=== PATIENT | male | born 1950 | race Caucasian/White ===

== ENCOUNTER 2019-04-23 18:48 | Emergency (ER) | payer MEDICARE ==
[~2019-04-23] VITALS: Ht 188 cm; Wt 122.5 kg
[~2019-04-23 18:48] MED LIST: ACET325 PO; ALL DAY ALLERGY10 M1; AMOX500; ASPI325; ASPI81EC; ATOR20 PO; BENZ100A PO; BUDE10.22 INH; BUSP15 PO; CEPH500 PO; CHOL10002 PO; CIPR750; CLOBET30L TOP; CLON1; CLON1 PO; CODACE15 PO; CYCL10 PO; DIVA500EC PO; DOXA2 PO; FLUO10 PO; HYDACE10B PO; HYDACE5 PO; HYDACE5325 PO; HYDACE7.5; HYDACE7.5 PO; LORA.5; LORA.5 PO; LOSARTAN-HCTZ1 EACH PO; LOSHYD; MELO7.5 PO; META800 PO; METO25ER; METO25ER PO; METO50 PO; METPHE18ER; METPRE4DP PO; NAPR500 PO; OLAN10 PO; OXYACE5T PO; PARO10 PO; PARO30; PAXIL; PRED20 PO; PROCODE120 PO; Prednisone20 MG PO; RXOXYACE PO; SERT100 PO; SIMV40; SIMV40 PO; TESTOSTERONE ENANTHATE; TESTTP; TRAZ50; TRET.1TC; UNK MUSCLE RELAXER; UNKNOWN BP MED; Zithromax250 MG PO; [UNRECOGNIZED DRUG - OTHER]; [UNRECOGNIZED DRUG - OTHER]; [UNRECOGNIZED DRUG - REMARK]; [UNRECOGNIZED DRUG - REMARK]
[2019-04-23] MEDS ORDERED: LUBRICANT EYE15 ML BOTHEYES (19:08)
[2019-04-23] MEDS ORDERED: Vitamin D2000 UNIT PO (19:09)
[2019-04-23] MEDS ORDERED: GENTEAL TEARS 015 ML BOTHEYES (19:11)
[2019-04-23] MEDS ORDERED: Depakote ER500 MG PO ×2 (19:12)
[2019-04-23] MEDS ORDERED: Cardura8 MG PO (19:13)
[2019-04-23] MEDS ORDERED: SILDENAFIL CIT100 MG PO (19:16)
[2019-04-23] MEDS ORDERED: ANDROGEL75 GM TOP (19:17)
[2019-04-23] MEDS ORDERED: [UNRECOGNIZED DRUG - OTHER] TOP (19:18)
== END 2019-04-23 20:36 | disposition home or self-care (01) ==
LOC: ER 18:48
DX: R42 Dizziness and giddiness (principal); R20.2 Paresthesia of skin; I12.9 Hypertensive chronic kidney disease with stage 1 through stage 4 chronic kidney disease, or unspecified chronic kidney disease; N18.9 Chronic kidney disease, unspecified; J45.909 Unspecified asthma, uncomplicated; F43.10 Post-traumatic stress disorder, unspecified; D64.9 Anemia, unspecified; Z88.8 Allergy status to other drugs, medicaments and biological substances; Z79.899 Other long term (current) drug therapy
CPT/HCPCS: 36415; 84484; 93005; 93010; 99285-25

== ENCOUNTER 2019-09-03 20:08 | Emergency (ER) | payer OTHER ==
[~2019-09-03] VITALS: Ht 188 cm; Wt 122.5 kg
[~2019-09-03 20:08] MED LIST changes: +ANDROGEL75 GM TOP; +Cardura8 MG PO; +Depakote ER500 MG PO; +GENTEAL TEARS 015 ML BOTHEYES; +LUBRICANT EYE15 ML BOTHEYES; +SILDENAFIL CIT100 MG PO; +Vitamin D2000 UNIT PO; +[UNRECOGNIZED DRUG - OTHER] TOP
[2019-09-03 20:45] LABS: BASOPHILS ABSOLUTE AUTO 0.02 K/mm3 (0.00-0.23); BASOPHILS PERCENT AUTO 0 % (0-2); EOSINOPHILS ABSOLUTE AUTO 0.18 K/mm3 (0.00-0.68); EOSINOPHILS PERCENT AUTO 3 % (0-6); Hematocrit 39.5 % (37.0-53.0); Hemoglobin 13.7 g/dL (13.5-17.5); IMMATURE GRAN ABSOLUTE AUTO 0.03 K/mm3 (0.00-0.10); IMMATURE GRAN PERCENT AUTO 1 % (0-1); LYMPHOCYTES ABSOLUTE AUTO 1.77 K/mm3 (0.84-5.20); LYMPHOCYTES PERCENT AUTO 27 % (21-46); MONOCYTES PERCENT AUTO 11 % (4-13); Mean Corpuscular HGB 29.3 pg (26.0-34.0); Mean Corpuscular HGB Conc 34.7 g/dL (31.5-36.5); Mean Corpuscular Volume 84 fL (80-100); Mean Platelet Volume 9.3 fL (9.1-12.4); NEUTROPHILS ABSOLUTE AUTO 3.96 K/mm3 (1.96-9.15); NEUTROPHILS PERCENT AUTO 59 % (41-73); Platelet Count 185 K/mm3 (150-400); RDW Coefficient Variation 12.9 % (11.7-14.2); RDW Standard Deviation 39.5 fL (35.1-46.3); Red Blood Cell Count 4.68 M/mm3 (4.30-5.90); White Blood Cell Count 6.66 K/mm3 (4.00-11.30)
[2019-09-03 21:06] LABS: Alanine Aminotransfer (ALT/SGP 41 U/L (12-78); Albumin, Blood 3.9 g/dL (3.4-5.0); Albumin/Globulin Ratio 1.1 (0.8-1.8); Alk Phos 61 U/L (50-136); Anion Gap 5 mmol/L (6-16); Aspartate Aminotrans (AST/SGOT 40 U/L (12-37); Bilirubin, Total 0.5 mg/dL (0.1-1.0); Blood Urea Nitrogen 20 mg/dL (8-24); Bun/Creatinine Ratio 21.8 (12.0-20.0); CO2, Blood 27 mmol/L (21-32); Calcium, Blood 9.1 mg/dL (8.5-10.1); Chloride, Blood 105 mmol/L (98-108); Creatinine, Blood 0.92 mg/dL (0.60-1.20); Globulin, Blood 3.7 g/dL (2.2-4.0); Glomerular Filtration Rate >60 (60-); Glucose, Blood 155 mg/dL (70-99); Potassium, Blood 3.2 mmol/L (3.5-5.5); Sodium, Blood 137 mmol/L (136-145); Total Protein, Blood 7.6 g/dL (6.4-8.2); Troponin I <0.015 ng/mL (0.000-0.040)
[2019-09-04 00:10] LABS: Source, Urine Clean Catch
[2019-09-04 00:16] LABS: Bilirubin, Urine Neg (Neg); Blood, Urine Neg (Neg); Glucose Qualitative, Urine Neg (Neg); Ketones, Urine Neg (Neg); Leukocyte Esterase, Urine Neg (Neg); Nitrite, Urine Neg (Neg); Protein, Urine Neg (Neg); Specific Gravity, Urine 1.025 (1.003-1.022); Urobilinogen, Urine NORM (Normal)
[2019-09-04 00:20] LABS: Appearance, Urine Clear (Clear); Color, Urine Yellow (P-Yellow)
== END 2019-09-04 01:10 | disposition home or self-care (01) ==
LOC: ER 20:08
PROVIDERS: Physician Assistant
DX: R07.9 Chest pain, unspecified (principal); E87.6 Hypokalemia; R51 Headache; H53.9 Unspecified visual disturbance; I10 Essential (primary) hypertension; J45.909 Unspecified asthma, uncomplicated; J43.9 Emphysema, unspecified; Z88.8 Allergy status to other drugs, medicaments and biological substances; Z79.899 Other long term (current) drug therapy
CPT/HCPCS: 36415; 70450; 71046; 80053; 81003; 84484; 85025; 93005; 93010; 99285-25

== ENCOUNTER 2020-01-07 16:17 | Emergency (ER) | payer SELFPAY ==
[~2020-01-07] VITALS: Ht 188 cm; Wt 129.3 kg
[~2020-01-07 16:17] MED LIST changes: +LOSA50 PO; +TAMS.4ER PO
[2020-01-07] MEDS ORDERED: Klonopin0.5 MG PO (18:18)
== END 2020-01-07 18:53 | disposition home or self-care (01) ==
LOC: ER 16:17
DX: F41.9 Anxiety disorder, unspecified (principal); Z88.8 Allergy status to other drugs, medicaments and biological substances; Z79.899 Other long term (current) drug therapy; I10 Essential (primary) hypertension; F20.9 Schizophrenia, unspecified; J44.9 Chronic obstructive pulmonary disease, unspecified; F03.90 Unspecified dementia, unspecified severity, without behavioral disturbance, psychotic disturbance, mood disturbance, and anxiety; Z87.891 Personal history of nicotine dependence
CPT/HCPCS: 99283

== ENCOUNTER 2020-04-04 18:39 | Emergency (ER) | payer SELFPAY ==
[~2020-04-04] VITALS: Ht 188 cm; Wt 113.4 kg
[~2020-04-04 18:39] MED LIST changes: +Klonopin0.5 MG PO
[2020-04-04 19:03] LABS: Source, Urine Clean Catch
[2020-04-04 19:05] LABS: Bilirubin, Urine Neg (Neg); Blood, Urine Neg (Neg); Glucose Qualitative, Urine Neg (Neg); Ketones, Urine Neg (Neg); Leukocyte Esterase, Urine Neg (Neg); Nitrite, Urine Neg (Neg); Protein, Urine Neg (Neg); Urobilinogen, Urine NORM (Normal)
[2020-04-04] MEDS ORDERED: HYDPAM50 PO (19:05)
[2020-04-04 19:07] LABS: Appearance, Urine Clear (Clear); Color, Urine Yellow (P-Yellow)
[2020-04-04 19:18] LABS: BASOPHILS ABSOLUTE AUTO 0.03 K/mm3 (0.00-0.23); BASOPHILS PERCENT AUTO 1 % (0-2); EOSINOPHILS ABSOLUTE AUTO 0.11 K/mm3 (0.00-0.68); EOSINOPHILS PERCENT AUTO 2 % (0-6); Hematocrit 38.3 % (37.0-53.0); Hemoglobin 12.8 g/dL (13.5-17.5); IMMATURE GRAN ABSOLUTE AUTO 0.03 K/mm3 (0.00-0.10); IMMATURE GRAN PERCENT AUTO 1 % (0-1); LYMPHOCYTES ABSOLUTE AUTO 1.35 K/mm3 (0.84-5.20); LYMPHOCYTES PERCENT AUTO 24 % (21-46); MONOCYTES ABSOLUTE AUTO 0.47 K/mm3 (0.16-1.47); MONOCYTES PERCENT AUTO 8 % (4-13); Mean Corpuscular HGB 29.4 pg (26.0-34.0); Mean Corpuscular HGB Conc 33.4 g/dL (31.5-36.5); Mean Corpuscular Volume 88 fL (80-100); Mean Platelet Volume 9.3 fL (9.1-12.4); NEUTROPHILS ABSOLUTE AUTO 3.73 K/mm3 (1.96-9.15); NEUTROPHILS PERCENT AUTO 65 % (41-73); Platelet Count 181 K/mm3 (150-400); RDW Coefficient Variation 13.1 % (11.7-14.2); RDW Standard Deviation 42.1 fL (35.1-46.3); Red Blood Cell Count 4.35 M/mm3 (4.30-5.90); White Blood Cell Count 5.72 K/mm3 (4.00-11.30)
[2020-04-04 19:41] LABS: Alanine Aminotransfer (ALT/SGP 47 U/L (12-78); Albumin, Blood 3.9 g/dL (3.4-5.0); Albumin/Globulin Ratio 1.1 (0.8-1.8); Alk Phos 54 U/L (50-136); Anion Gap 5 mmol/L (6-16); Aspartate Aminotrans (AST/SGOT 30 U/L (12-37); Bilirubin, Total 0.5 mg/dL (0.1-1.0); Blood Urea Nitrogen 15 mg/dL (8-24); CO2, Blood 29 mmol/L (21-32); Calcium, Blood 9.2 mg/dL (8.5-10.1); Chloride, Blood 103 mmol/L (98-108); Creatinine, Blood 0.88 mg/dL (0.60-1.20); Globulin, Blood 3.5 g/dL (2.2-4.0); Glomerular Filtration Rate >60 (60-); Glucose, Blood 114 mg/dL (70-99); Potassium, Blood 3.9 mmol/L (3.5-5.5); Sodium, Blood 137 mmol/L (136-145); Total Protein, Blood 7.4 g/dL (6.4-8.2); Troponin I <0.015 ng/mL (0.000-0.040)
[2020-04-05] MEDS ORDERED: Klonopin0.5 MG (19:40)
[2020-04-05] MEDS ORDERED: Refresh Plus1 EACH OP (19:40)
[2020-04-05] MEDS ORDERED: FLUVOXAMINE MA100 MG PO (19:41)
[2020-04-05] MEDS ORDERED: CLOT10 MT (19:41)
[2020-04-05] MEDS ORDERED: LOSA50 (19:42)
== END 2020-04-04 21:11 | disposition home or self-care (01) ==
LOC: ER 18:39
PROVIDERS: Emergency Medicine
DX: F41.9 Anxiety disorder, unspecified (principal); I10 Essential (primary) hypertension; F25.9 Schizoaffective disorder, unspecified; F03.90 Unspecified dementia, unspecified severity, without behavioral disturbance, psychotic disturbance, mood disturbance, and anxiety; J44.9 Chronic obstructive pulmonary disease, unspecified; Z87.891 Personal history of nicotine dependence; Z79.899 Other long term (current) drug therapy
CPT/HCPCS: 71046; 80053; 81003; 84484; 85025; 93005; 93010; 96374; 99284-25; J2060

== ENCOUNTER 2020-09-14 15:40 | Emergency (ER) | payer OTHER ==
[~2020-09-14] VITALS: Ht 188 cm; Wt 120.2 kg
[~2020-09-14 15:40] MED LIST changes: +CLOT10 MT; +FLUVOXAMINE MA100 MG PO; +HYDPAM50 PO; +Klonopin0.5 MG; +LOSA50; +Refresh Plus1 EACH OP
[2020-09-14 16:14] LABS: BASOPHILS ABSOLUTE AUTO 0.06 K/mm3 (0.00-0.23); BASOPHILS PERCENT AUTO 1 % (0-2); EOSINOPHILS ABSOLUTE AUTO 0.15 K/mm3 (0.00-0.68); EOSINOPHILS PERCENT AUTO 2 % (0-6); Hematocrit 48.3 % (37.0-53.0); Hemoglobin 15.6 g/dL (13.5-17.5); IMMATURE GRAN ABSOLUTE AUTO 0.06 K/mm3 (0.00-0.10); IMMATURE GRAN PERCENT AUTO 1 % (0-1); LYMPHOCYTES ABSOLUTE AUTO 1.44 K/mm3 (0.84-5.20); LYMPHOCYTES PERCENT AUTO 19 % (21-46); MONOCYTES PERCENT AUTO 10 % (4-13); Mean Corpuscular HGB 27.8 pg (26.0-34.0); Mean Corpuscular HGB Conc 32.3 g/dL (31.5-36.5); Mean Corpuscular Volume 86 fL (80-100); Mean Platelet Volume 9.7 fL (9.1-12.4); NEUTROPHILS ABSOLUTE AUTO 5.21 K/mm3 (1.96-9.15); NEUTROPHILS PERCENT AUTO 67 % (41-73); Platelet Count 203 K/mm3 (150-400); RDW Coefficient Variation 14.3 % (11.7-14.2); RDW Standard Deviation 45.3 fL (35.1-46.3); Red Blood Cell Count 5.62 M/mm3 (4.30-5.90); White Blood Cell Count 7.72 K/mm3 (4.00-11.30)
[2020-09-14 16:37] LABS: Alanine Aminotransfer (ALT/SGP 44 U/L (12-78); Albumin, Blood 3.8 g/dL (3.4-5.0); Alk Phos 57 U/L (50-136); Anion Gap 4 mmol/L (6-16); Aspartate Aminotrans (AST/SGOT 32 U/L (12-37); Bilirubin, Total 0.3 mg/dL (0.1-1.0); Blood Urea Nitrogen 18 mg/dL (8-24); Bun/Creatinine Ratio 22.5 (12.0-20.0); CO2, Blood 30 mmol/L (21-32); Calcium, Blood 8.4 mg/dL (8.5-10.1); Chloride, Blood 104 mmol/L (98-108); Globulin, Blood 3.8 g/dL (2.2-4.0); Glomerular Filtration Rate >60 (60-); Glucose, Blood 134 mg/dL (70-99); Potassium, Blood 4.1 mmol/L (3.5-5.5); Sodium, Blood 138 mmol/L (136-145); Total Protein, Blood 7.6 g/dL (6.4-8.2); Troponin I <0.015 ng/mL (0.000-0.040)
[2020-09-14] MEDS ORDERED: BENZ100A PO (20:53)
== END 2020-09-14 21:12 | disposition home or self-care (01) ==
LOC: ER 15:40
PROVIDERS: Physician Assistant
DX: J40 Bronchitis, not specified as acute or chronic (principal); R55 Syncope and collapse; E03.9 Hypothyroidism, unspecified; I12.9 Hypertensive chronic kidney disease with stage 1 through stage 4 chronic kidney disease, or unspecified chronic kidney disease; N18.9 Chronic kidney disease, unspecified; Z79.899 Other long term (current) drug therapy
CPT/HCPCS: 36415; 71045; 80053; 84484; 85025; 93005; 93010; 99283-25

== ENCOUNTER 2020-09-19 11:55 | Emergency (ER) | payer OTHER ==
[~2020-09-19] VITALS: Ht 188 cm; Wt 138.3 kg
[2020-09-19 12:55] LABS: BASOPHILS ABSOLUTE AUTO 0.05 K/mm3 (0.00-0.23); BASOPHILS PERCENT AUTO 1 % (0-2); EOSINOPHILS ABSOLUTE AUTO 0.16 K/mm3 (0.00-0.68); EOSINOPHILS PERCENT AUTO 2 % (0-6); Hematocrit 49.7 % (37.0-53.0); Hemoglobin 16.1 g/dL (13.5-17.5); IMMATURE GRAN ABSOLUTE AUTO 0.07 K/mm3 (0.00-0.10); IMMATURE GRAN PERCENT AUTO 1 % (0-1); LYMPHOCYTES ABSOLUTE AUTO 1.32 K/mm3 (0.84-5.20); LYMPHOCYTES PERCENT AUTO 17 % (21-46); MONOCYTES ABSOLUTE AUTO 0.79 K/mm3 (0.16-1.47); MONOCYTES PERCENT AUTO 10 % (4-13); Mean Corpuscular HGB Conc 32.4 g/dL (31.5-36.5); Mean Corpuscular Volume 86 fL (80-100); Mean Platelet Volume 9.5 fL (9.1-12.4); NEUTROPHILS ABSOLUTE AUTO 5.32 K/mm3 (1.96-9.15); NEUTROPHILS PERCENT AUTO 69 % (41-73); Platelet Count 191 K/mm3 (150-400); RDW Coefficient Variation 14.7 % (11.7-14.2); Red Blood Cell Count 5.76 M/mm3 (4.30-5.90); White Blood Cell Count 7.71 K/mm3 (4.00-11.30)
[2020-09-19 13:15] LABS: Alanine Aminotransfer (ALT/SGP 42 U/L (12-78); Albumin, Blood 3.7 g/dL (3.4-5.0); Alk Phos 51 U/L (50-136); Anion Gap 6 mmol/L (6-16); Aspartate Aminotrans (AST/SGOT 26 U/L (12-37); Bilirubin, Total 0.5 mg/dL (0.1-1.0); Blood Urea Nitrogen 20 mg/dL (8-24); CO2, Blood 27 mmol/L (21-32); Calcium, Blood 8.4 mg/dL (8.5-10.1); Chloride, Blood 104 mmol/L (98-108); Globulin, Blood 3.8 g/dL (2.2-4.0); Glomerular Filtration Rate >60 (60-); Glucose, Blood 121 mg/dL (70-99); Potassium, Blood 4.2 mmol/L (3.5-5.5); Sodium, Blood 137 mmol/L (136-145); Total Protein, Blood 7.5 g/dL (6.4-8.2); Troponin I <0.015 ng/mL (0.000-0.040)
[2020-09-19] MEDS ORDERED: SYMBICORT 80-10.2 GM INH (13:17)
[2020-09-19] MEDS ORDERED: BENZ100A PO (13:17)
[2020-09-19] MEDS ORDERED: LOSA50 PO (13:18)
[2020-09-19] MEDS ORDERED: ROPI.25 PO (13:18)
[2020-09-19] MEDS ORDERED: HYDHCL25 PO (13:18)
[2020-09-19] MEDS ORDERED: SERT100 PO (13:18)
[2020-09-19] MEDS ORDERED: TAMS.4ER PO (13:19)
[2020-09-19] MEDS ORDERED: Viagra100 MG PO (13:19)
[2020-09-19] MEDS ORDERED: TESTOSTERONE75 G1 TOP (13:20)
[2020-09-19] MEDS ORDERED: ALBU90OI INH (14:03)
== END 2020-09-19 14:12 | disposition home or self-care (01) ==
LOC: ER 11:55
PROVIDERS: Emergency Medicine
DX: R55 Syncope and collapse (principal); J43.9 Emphysema, unspecified; I12.9 Hypertensive chronic kidney disease with stage 1 through stage 4 chronic kidney disease, or unspecified chronic kidney disease; N18.9 Chronic kidney disease, unspecified; F42.9 Obsessive-compulsive disorder, unspecified; F43.10 Post-traumatic stress disorder, unspecified; Z88.8 Allergy status to other drugs, medicaments and biological substances; Z79.899 Other long term (current) drug therapy; Z87.891 Personal history of nicotine dependence
CPT/HCPCS: 71046; 80053; 84484; 85025; 93005; 93010; 99284-25

== ENCOUNTER 2020-12-07 22:32 | Emergency (ER) | payer OTHER ==
[~2020-12-07] VITALS: Ht 188 cm; Wt 81.7 kg
[~2020-12-07 22:32] MED LIST changes: +ALBU90OI INH; +HYDHCL25 PO; +ROPI.25 PO; +SYMBICORT 80-10.2 GM INH; +TESTOSTERONE75 G1 TOP; +Viagra100 MG PO
[2020-12-07] MEDS ORDERED: Ativan0.5 MG PO (23:19)
== END 2020-12-07 23:42 | disposition home or self-care (01) ==
LOC: ER 22:32
DX: F41.9 Anxiety disorder, unspecified (principal); I10 Essential (primary) hypertension; J43.9 Emphysema, unspecified; N18.9 Chronic kidney disease, unspecified; Z88.8 Allergy status to other drugs, medicaments and biological substances; Z79.899 Other long term (current) drug therapy
CPT/HCPCS: 93005; 93010; 99283-25; A9270

== ENCOUNTER 2021-10-18 15:39 | Emergency (ER) | payer OTHER ==
[~2021-10-18] VITALS: Ht 188 cm; Wt 135.2 kg
[~2021-10-18 15:39] MED LIST changes: +Ativan0.5 MG PO
[2021-10-18 17:02] LABS: BASOPHILS ABSOLUTE AUTO 0.04 K/mm3 (0.00-0.23); BASOPHILS PERCENT AUTO 1 % (0-2); EOSINOPHILS ABSOLUTE AUTO 0.04 K/mm3 (0.00-0.68); EOSINOPHILS PERCENT AUTO 1 % (0-6); Hematocrit 51.4 % (37.0-53.0); Hemoglobin 17.5 g/dL (13.5-17.5); IMMATURE GRAN ABSOLUTE AUTO 0.05 K/mm3 (0.00-0.10); IMMATURE GRAN PERCENT AUTO 1 % (0-1); LYMPHOCYTES ABSOLUTE AUTO 1.08 K/mm3 (0.84-5.20); LYMPHOCYTES PERCENT AUTO 12 % (21-46); MONOCYTES ABSOLUTE AUTO 0.84 K/mm3 (0.16-1.47); MONOCYTES PERCENT AUTO 10 % (4-13); Mean Corpuscular HGB 29.1 pg (26.0-34.0); Mean Corpuscular Volume 85 fL (80-100); Mean Platelet Volume 9.4 fL (9.1-12.4); NEUTROPHILS ABSOLUTE AUTO 6.82 K/mm3 (1.96-9.15); NEUTROPHILS PERCENT AUTO 77 % (41-73); Platelet Count 231 K/mm3 (150-400); RDW Standard Deviation 40.5 fL (35.1-46.3); Red Blood Cell Count 6.02 M/mm3 (4.30-5.90); White Blood Cell Count 8.87 K/mm3 (4.00-11.30)
[2021-10-18 17:24] LABS: Alanine Aminotransfer (ALT/SGP 45 U/L (12-78); Albumin, Blood 4.1 g/dL (3.4-5.0); Alk Phos 53 U/L (50-136); Anion Gap 5 mmol/L (6-16); Aspartate Aminotrans (AST/SGOT 32 U/L (12-37); Bilirubin, Total 0.9 mg/dL (0.1-1.0); Blood Urea Nitrogen 16 mg/dL (8-24); Bun/Creatinine Ratio 18.7 (12.0-20.0); CO2, Blood 27 mmol/L (21-32); Calcium, Blood 8.9 mg/dL (8.5-10.1); Chloride, Blood 103 mmol/L (98-108); Creatinine, Blood 0.85 mg/dL (0.60-1.20); Globulin, Blood 4.3 g/dL (2.2-4.0); Glomerular Filtration Rate >60 (60-); Glucose, Blood 115 mg/dL (70-99); Potassium, Blood 3.9 mmol/L (3.5-5.5); Sodium, Blood 135 mmol/L (136-145); Total Protein, Blood 8.4 g/dL (6.4-8.2)
[2021-10-18 19:17] LABS: Source, Urine Clean Catch
[2021-10-18 19:21] LABS: Appearance, Urine Clear (Clear); Bilirubin, Urine Neg (Neg); Blood, Urine 2+ (Neg); Color, Urine Yellow (P-Yellow); Glucose Qualitative, Urine 1+ (Neg); Ketones, Urine 4+ (Neg); Leukocyte Esterase, Urine 1+ (Neg); Nitrite, Urine Neg (Neg); Protein, Urine 3+ (Neg); Urobilinogen, Urine 2+ (Normal)
[2021-10-18 19:32] LABS: Bacteria Few /hpf; Granular Casts 0-2 /lpf (0); Mucus Mod (0-Heavy); Squamous Epithelial Cells Few /hpf (Few)
[2021-10-18 20:09] LABS: BASOPHILS ABSOLUTE AUTO 0.04 K/mm3 (0.00-0.23); BASOPHILS PERCENT AUTO 0 % (0-2); EOSINOPHILS ABSOLUTE AUTO 0.04 K/mm3 (0.00-0.68); EOSINOPHILS PERCENT AUTO 0 % (0-6); Hematocrit 51.3 % (37.0-53.0); Hemoglobin 17.2 g/dL (13.5-17.5); IMMATURE GRAN ABSOLUTE AUTO 0.04 K/mm3 (0.00-0.10); IMMATURE GRAN PERCENT AUTO 0 % (0-1); LYMPHOCYTES ABSOLUTE AUTO 1.18 K/mm3 (0.84-5.20); LYMPHOCYTES PERCENT AUTO 13 % (21-46); MONOCYTES ABSOLUTE AUTO 0.94 K/mm3 (0.16-1.47); MONOCYTES PERCENT AUTO 10 % (4-13); Mean Corpuscular HGB Conc 33.5 g/dL (31.5-36.5); Mean Corpuscular Volume 86 fL (80-100); Mean Platelet Volume 9.6 fL (9.1-12.4); NEUTROPHILS ABSOLUTE AUTO 6.91 K/mm3 (1.96-9.15); NEUTROPHILS PERCENT AUTO 76 % (41-73); Platelet Count 227 K/mm3 (150-400); RDW Standard Deviation 40.8 fL (35.1-46.3); Red Blood Cell Count 5.94 M/mm3 (4.30-5.90); White Blood Cell Count 9.15 K/mm3 (4.00-11.30)
[2021-10-18 20:28] LABS: Alanine Aminotransfer (ALT/SGP 42 U/L (12-78); Albumin/Globulin Ratio 0.9 (0.8-1.8); Alk Phos 52 U/L (50-136); Anion Gap 6 mmol/L (6-16); Aspartate Aminotrans (AST/SGOT 32 U/L (12-37); Bilirubin, Total 0.8 mg/dL (0.1-1.0); Blood Urea Nitrogen 15 mg/dL (8-24); Bun/Creatinine Ratio 17.1 (12.0-20.0); CO2, Blood 26 mmol/L (21-32); Calcium, Blood 8.8 mg/dL (8.5-10.1); Chloride, Blood 102 mmol/L (98-108); Creatinine, Blood 0.88 mg/dL (0.60-1.20); Globulin, Blood 4.3 g/dL (2.2-4.0); Glomerular Filtration Rate >60 (60-); Glucose, Blood 108 mg/dL (70-99); Magnesium, Blood 2.2 mg/dL (1.6-2.4); Potassium, Blood 3.8 mmol/L (3.5-5.5); Sodium, Blood 134 mmol/L (136-145); Total Protein, Blood 8.3 g/dL (6.4-8.2)
[2021-10-18] MEDS ORDERED: PROM25 PO (20:42)
[2021-10-18] MEDS ORDERED: SULTRIDS PO (20:42)
[2021-10-18] MEDS ORDERED: HYDRA25 PO (20:42)
== END 2021-10-18 22:04 | disposition home or self-care (01) ==
LOC: ER 15:39
PROVIDERS: Physician Assistant
DX: N30.01 Acute cystitis with hematuria (principal); R11.2 Nausea with vomiting, unspecified; I12.9 Hypertensive chronic kidney disease with stage 1 through stage 4 chronic kidney disease, or unspecified chronic kidney disease; N18.9 Chronic kidney disease, unspecified; D63.1 Anemia in chronic kidney disease; J43.9 Emphysema, unspecified; Z79.899 Other long term (current) drug therapy
CPT/HCPCS: 36415; 71045; 80053; 81001; 83690; 83735; 83880; 84484; 85025; 87086; 93005; 93010; 96374; 96375; 99284-25; A9270; J2405; J2765; J7120

== ENCOUNTER 2022-09-22 15:11 | Emergency (ER) | payer OTHER ==
[~2022-09-22] VITALS: Ht 188 cm; Wt 97.5 kg
[~2022-09-22 15:11] MED LIST changes: +HYDRA25 PO; +PROM25 PO; +SULTRIDS PO
[2022-09-22 17:48] LABS: BASOPHILS ABSOLUTE AUTO 0.04 K/mm3 (0.00-0.23); BASOPHILS PERCENT AUTO 1 % (0-2); EOSINOPHILS ABSOLUTE AUTO 0.12 K/mm3 (0.00-0.68); EOSINOPHILS PERCENT AUTO 2 % (0-6); Hematocrit 40.5 % (37.0-53.0); Hemoglobin 13.5 g/dL (13.5-17.5); IMMATURE GRAN ABSOLUTE AUTO 0.04 K/mm3 (0.00-0.10); IMMATURE GRAN PERCENT AUTO 1 % (0-1); LYMPHOCYTES ABSOLUTE AUTO 1.34 K/mm3 (0.84-5.20); LYMPHOCYTES PERCENT AUTO 20 % (21-46); MONOCYTES ABSOLUTE AUTO 0.54 K/mm3 (0.16-1.47); MONOCYTES PERCENT AUTO 8 % (4-13); Mean Corpuscular HGB 28.7 pg (26.0-34.0); Mean Corpuscular HGB Conc 33.3 g/dL (31.5-36.5); Mean Corpuscular Volume 86 fL (80-100); Mean Platelet Volume 9.6 fL (9.1-12.4); NEUTROPHILS ABSOLUTE AUTO 4.77 K/mm3 (1.96-9.15); NEUTROPHILS PERCENT AUTO 70 % (41-73); Platelet Count 210 K/mm3 (150-400); RDW Standard Deviation 40.8 fL (35.1-46.3); Red Blood Cell Count 4.71 M/mm3 (4.30-5.90); White Blood Cell Count 6.85 K/mm3 (4.00-11.30)
[2022-09-22 17:59] LABS: Albumin, Blood 3.8 g/dL (3.4-5.0); Albumin/Globulin Ratio 0.9 (0.8-1.8); Bilirubin, Total 0.4 mg/dL (0.1-1.0); Bun/Creatinine Ratio 25.3 (12.0-20.0); Creatinine, Blood 0.71 mg/dL (0.60-1.20); Globulin, Blood 4.1 g/dL (2.2-4.0); Potassium, Blood 4.1 mmol/L (3.5-5.5); Total Protein, Blood 7.9 g/dL (6.4-8.2)
[2022-09-22 18:43] LABS: Magnesium, Blood 1.9 mg/dL (1.6-2.4)
[2022-09-22 18:45] LABS: Thyroid Stimulating Hormone 3.32 uIU/mL (0.360-4.800)
[2022-09-22 19:37] LABS: Base Excess Venous 5.7 mmol/L; Bicarbonate Venous 28.4 mmol/L (24.0-30.0); PCO2 Venous 50.2 mmHg (38-42); pH Blood Venous 7.39 (7.34-7.37)
[2022-09-22 19:45] LABS: Influenza A, PCR NEGATIVE (NEGATIVE); Influenza B, PCR NEGATIVE (NEGATIVE); Resp Syncytial Virus, PCR NEGATIVE (NEGATIVE); SARS-Cov-2 (COVID-19) PCR, MMC NEGATIVE (NEGATIVE)
[2022-09-22] MEDS ORDERED: ALBU90OI INH (21:17)
[2022-09-22] MEDS ORDERED: PRED20 PO (21:17)
== END 2022-09-22 21:56 | disposition home or self-care (01) ==
LOC: ER 15:11
PROVIDERS: Student in an Organized Health Care Education/Training Program
DX: R42 Dizziness and giddiness (principal); R06.02 Shortness of breath; I12.9 Hypertensive chronic kidney disease with stage 1 through stage 4 chronic kidney disease, or unspecified chronic kidney disease; N18.9 Chronic kidney disease, unspecified; J43.9 Emphysema, unspecified; Z20.822 Contact with and (suspected) exposure to COVID-19; Z88.8 Allergy status to other drugs, medicaments and biological substances; Z79.899 Other long term (current) drug therapy
CPT/HCPCS: 0241U; 36415; 71045; 80053; 82803; 83735; 83880; 84443; 84484; 85025; 93005; 93010; 94640; 94664

== ENCOUNTER 2022-10-20 15:18 | Emergency (ER) | payer OTHER ==
[~2022-10-20] VITALS: Ht 188 cm; Wt 124.7 kg
[2022-10-20 17:14] LABS: Base Excess Venous 6.3 mmol/L; Bicarbonate Venous 28.2 mmol/L (24.0-30.0); PCO2 Venous 59.2 mmHg (38-42); pH Blood Venous 7.34 (7.34-7.37)
[2022-10-20 17:22] LABS: BASOPHILS ABSOLUTE AUTO 0.04 K/mm3 (0.00-0.23); BASOPHILS PERCENT AUTO 1 % (0-2); EOSINOPHILS ABSOLUTE AUTO 0.07 K/mm3 (0.00-0.68); EOSINOPHILS PERCENT AUTO 1 % (0-6); Hematocrit 39.5 % (37.0-53.0); Hemoglobin 13.2 g/dL (13.5-17.5); IMMATURE GRAN ABSOLUTE AUTO 0.05 K/mm3 (0.00-0.10); IMMATURE GRAN PERCENT AUTO 1 % (0-1); LYMPHOCYTES ABSOLUTE AUTO 1.34 K/mm3 (0.84-5.20); LYMPHOCYTES PERCENT AUTO 17 % (21-46); MONOCYTES ABSOLUTE AUTO 0.63 K/mm3 (0.16-1.47); MONOCYTES PERCENT AUTO 8 % (4-13); Mean Corpuscular HGB 29.1 pg (26.0-34.0); Mean Corpuscular HGB Conc 33.4 g/dL (31.5-36.5); Mean Corpuscular Volume 87 fL (80-100); Mean Platelet Volume 9.5 fL (9.1-12.4); NEUTROPHILS ABSOLUTE AUTO 5.68 K/mm3 (1.96-9.15); NEUTROPHILS PERCENT AUTO 73 % (41-73); Platelet Count 219 K/mm3 (150-400); RDW Coefficient Variation 13.2 % (11.7-14.2); RDW Standard Deviation 41.7 fL (35.1-46.3); Red Blood Cell Count 4.54 M/mm3 (4.30-5.90); White Blood Cell Count 7.81 K/mm3 (4.00-11.30)
[2022-10-20 17:32] LABS: Albumin, Blood 3.7 g/dL (3.4-5.0); Albumin/Globulin Ratio 0.9 (0.8-1.8); Bilirubin, Total 0.3 mg/dL (0.1-1.0); Bun/Creatinine Ratio 27.1 (12.0-20.0); Calcium, Blood 8.7 mg/dL (8.5-10.1); Creatinine, Blood 0.7 mg/dL (0.60-1.20); Globulin, Blood 4.2 g/dL (2.2-4.0); Potassium, Blood 4.1 mmol/L (3.5-5.5); Total Protein, Blood 7.9 g/dL (6.4-8.2)
[2022-10-20] MEDS ORDERED: Vistaril50 MG PO (19:50)
== END 2022-10-20 20:05 | disposition home or self-care (01) ==
LOC: ER 15:18
PROVIDERS: Emergency Medicine
DX: F41.9 Anxiety disorder, unspecified (principal); F43.10 Post-traumatic stress disorder, unspecified; F51.5 Nightmare disorder; R07.9 Chest pain, unspecified; R10.9 Unspecified abdominal pain; I12.9 Hypertensive chronic kidney disease with stage 1 through stage 4 chronic kidney disease, or unspecified chronic kidney disease; N18.9 Chronic kidney disease, unspecified; X58.XXXA Exposure to other specified factors, initial encounter; Z88.8 Allergy status to other drugs, medicaments and biological substances; Z79.899 Other long term (current) drug therapy; Z79.52 Long term (current) use of systemic steroids
CPT/HCPCS: 36415; 71045; 80053; 82803; 83880; 84484; 85025; 93005; 93010; A9270; J2060

== ENCOUNTER 2023-01-20 22:06 | Emergency (ER) | payer OTHER ==
[~2023-01-20] VITALS: Ht 188 cm; Wt 113.4 kg
[~2023-01-20 22:06] MED LIST changes: +ASCO500 PO; +FINA5 PO; +HYDCHL25 PO; +HYDPAM50; +MAGNESIUM OXID400 M2 PO; +METF500 PO; +ORAZINC220 MG PO; +QUET25 PO; +STIOLTO RESPIMAT4 G1 INH; +Vistaril50 MG PO
[2023-01-20] MEDS ORDERED: TRAZ50 PO ×2 (22:44→22:45)
[2023-01-20] MEDS ORDERED: Seroquel Xr50 MG PO (22:45)
[2023-01-20] MEDS ORDERED: METF500 PO (22:46)
== END 2023-01-21 00:45 | disposition home or self-care (01) ==
LOC: ER 22:06
DX: H43.392 Other vitreous opacities, left eye (principal); I12.9 Hypertensive chronic kidney disease with stage 1 through stage 4 chronic kidney disease, or unspecified chronic kidney disease; N18.9 Chronic kidney disease, unspecified; D63.1 Anemia in chronic kidney disease; J43.9 Emphysema, unspecified; Z88.8 Allergy status to other drugs, medicaments and biological substances; Z79.899 Other long term (current) drug therapy; Z79.84 Long term (current) use of oral hypoglycemic drugs
CPT/HCPCS: 99284

== ENCOUNTER 2023-07-15 13:34 | Emergency (ER) | payer OTHER ==
[~2023-07-15] VITALS: Ht 188 cm; Wt 104.3 kg
[~2023-07-15 13:34] MED LIST changes: +Seroquel Xr50 MG PO; +TRAZ50 PO
[2023-07-15] MEDS ORDERED: PRAV20 PO (15:03)
[2023-07-15 16:17] LABS: Source, Urine Clean Catch
[2023-07-15 16:22] LABS: Appearance, Urine Clear (Clear); Bilirubin, Urine Neg (Neg); Blood, Urine Neg (Neg); Color, Urine Yellow (P-Yellow); Glucose Qualitative, Urine 3+ (Neg); Ketones, Urine Neg (Neg); Leukocyte Esterase, Urine Neg (Neg); Nitrite, Urine Neg (Neg); Protein, Urine 1+ (Neg); Specific Gravity, Urine 1.025 (1.003-1.022); Urobilinogen, Urine NORM (Normal)
[2023-07-15 16:24] LABS: BASOPHILS ABSOLUTE AUTO 0.04 K/mm3 (0.00-0.23); BASOPHILS PERCENT AUTO 1 % (0-2); EOSINOPHILS ABSOLUTE AUTO 0.09 K/mm3 (0.00-0.68); EOSINOPHILS PERCENT AUTO 1 % (0-6); Hematocrit 40.2 % (37.0-53.0); Hemoglobin 13.6 g/dL (13.5-17.5); IMMATURE GRAN ABSOLUTE AUTO 0.04 K/mm3 (0.00-0.10); IMMATURE GRAN PERCENT AUTO 1 % (0-1); LYMPHOCYTES PERCENT AUTO 21 % (21-46); MONOCYTES ABSOLUTE AUTO 0.61 K/mm3 (0.16-1.47); MONOCYTES PERCENT AUTO 9 % (4-13); Mean Corpuscular HGB 29.2 pg (26.0-34.0); Mean Corpuscular HGB Conc 33.8 g/dL (31.5-36.5); Mean Corpuscular Volume 86 fL (80-100); Mean Platelet Volume 9.5 fL (9.1-12.4); NEUTROPHILS ABSOLUTE AUTO 4.91 K/mm3 (1.96-9.15); NEUTROPHILS PERCENT AUTO 68 % (41-73); Platelet Count 200 K/mm3 (150-400); RDW Coefficient Variation 12.3 % (11.7-14.2); RDW Standard Deviation 39.1 fL (35.1-46.3); Red Blood Cell Count 4.66 M/mm3 (4.30-5.90); White Blood Cell Count 7.19 K/mm3 (4.00-11.30)
[2023-07-15 16:48] LABS: Albumin, Blood 3.7 g/dL (3.4-5.0); Albumin/Globulin Ratio 0.9 (0.8-1.8); Bilirubin, Total 0.4 mg/dL (0.1-1.0); Bun/Creatinine Ratio 24.7 (12.0-20.0); Calcium, Blood 8.9 mg/dL (8.5-10.1); Creatinine, Blood 0.69 mg/dL (0.60-1.20); Potassium, Blood 3.7 mmol/L (3.5-5.5); Total Protein, Blood 7.7 g/dL (6.4-8.2)
[2023-07-15 17:14] VITALS: BP 139/82
== END 2023-07-15 17:15 | disposition home or self-care (01) ==
LOC: ER 13:34
PROVIDERS: Emergency Medicine
DX: H54.62 Unqualified visual loss, left eye, normal vision right eye (principal); Z91.199 Patient's noncompliance with other medical treatment and regimen due to unspecified reason; E11.9 Type 2 diabetes mellitus without complications; Z88.8 Allergy status to other drugs, medicaments and biological substances; Z79.899 Other long term (current) drug therapy; Z79.84 Long term (current) use of oral hypoglycemic drugs; I12.9 Hypertensive chronic kidney disease with stage 1 through stage 4 chronic kidney disease, or unspecified chronic kidney disease; F43.10 Post-traumatic stress disorder, unspecified; N18.9 Chronic kidney disease, unspecified; D63.1 Anemia in chronic kidney disease; E11.22 Type 2 diabetes mellitus with diabetic chronic kidney disease
CPT/HCPCS: 80053; 85025; A9270

== ENCOUNTER 2023-07-29 14:58 | Emergency (ER) | payer OTHER ==
[~2023-07-29] VITALS: Ht 188 cm; Wt 104.3 kg
[~2023-07-29 14:58] MED LIST changes: +PRAV20 PO
[2023-07-29 15:14] VITALS: BP 128/93
== END 2023-07-29 19:50 | disposition home or self-care (01) ==
LOC: ER 14:58
DX: H53.8 Other visual disturbances (principal); I12.9 Hypertensive chronic kidney disease with stage 1 through stage 4 chronic kidney disease, or unspecified chronic kidney disease; E11.22 Type 2 diabetes mellitus with diabetic chronic kidney disease; N18.9 Chronic kidney disease, unspecified; J43.9 Emphysema, unspecified; Z79.899 Other long term (current) drug therapy; Z79.84 Long term (current) use of oral hypoglycemic drugs
CPT/HCPCS: 99283

== ENCOUNTER 2025-05-31 00:45 | Inpatient (IN) | payer OTHER, MEDICARE ==
[~2025-05-31] VITALS: Ht 180.3 cm; Wt 111.6 kg
[2025-05-31] VITALS (32 sets, daily range): BP systolic 84–123; BP diastolic 48–78
[~2025-05-31 00:45] MED LIST changes: +ANTIFUNGAL30 GM TOP; +ASPI81CH PO; +Acerola C500 MG PO; +CEFP200 PO; +CLOP75 PO; +D5W-1/2NS 1,000 ML IV SCH; +EUCERIN ADVANC454 GM TOP
[2025-05-31] MEDS ORDERED: Piperacillin/Tazobactam Sod 3.375 GM in NS 100 ML IV ONE (00:55)
[2025-05-31 01:08] LABS: BASOPHILS ABSOLUTE AUTO 0.07 K/mm3 (0.00-0.23); BASOPHILS PERCENT AUTO 0 % (0-2); EOSINOPHILS ABSOLUTE AUTO 0.03 K/mm3 (0.00-0.68); EOSINOPHILS PERCENT AUTO 0 % (0-6); Hematocrit 46.3 % (37.0-53.0); Hemoglobin 14.9 g/dL (13.5-17.5); IMMATURE GRAN ABSOLUTE AUTO 0.21 K/mm3 (0.00-0.10); IMMATURE GRAN PERCENT AUTO 1 % (0-1); LYMPHOCYTES ABSOLUTE AUTO 1.74 K/mm3 (0.84-5.20); LYMPHOCYTES PERCENT AUTO 9 % (21-46); MONOCYTES ABSOLUTE AUTO 1.47 K/mm3 (0.16-1.47); MONOCYTES PERCENT AUTO 8 % (4-13); Mean Corpuscular HGB Conc 32.2 g/dL (31.5-36.5); Mean Corpuscular Volume 90 fL (80-100); NEUTROPHILS ABSOLUTE AUTO 15.34 K/mm3 (1.96-9.15); NEUTROPHILS PERCENT AUTO 81 % (41-73); NRBC ABSOLUTE 0.00 K/mm3 (0.00-0.02); NRBC Auto 0.0 /100 WBC (0.0-0.2); Platelet Count 314 K/mm3 (150-400); RDW Coefficient Variation 14.3 % (11.7-14.2); RDW Standard Deviation 47.1 fL (35.1-46.3)
[2025-05-31 01:27] LABS: Alanine Aminotransfer (ALT/SGP 151.0 U/L (12-78); Albumin, Blood 3.8 g/dL (3.4-5.0); Albumin/Globulin Ratio 0.9 (0.8-1.8); Anion Gap 13.0 mmol/L (3-11); Aspartate Aminotrans (AST/SGOT 69.0 U/L (12-37); Bilirubin, Total 1.0 mg/dL (0.1-1.0); Blood Urea Nitrogen 68.0 mg/dL (8-24); CO2, Blood 25.0 mmol/L (21-32); Calcium, Blood 8.9 mg/dL (8.5-10.1); Chloride, Blood 112.0 mmol/L (98-108); Creatinine, Blood 3.66 mg/dL (0.60-1.20); Globulin, Blood 4.4 g/dL (2.2-4.0); Glucose, Blood 187.0 mg/dL (70-99); Potassium, Blood 4.3 mmol/L (3.5-5.5); Sodium, Blood 146.0 mmol/L (136-145); Total Protein, Blood 8.2 g/dL (6.4-8.2)
[2025-05-31] MEDS ORDERED: Ipratropium/Albuterol SulF 2.5-0.5MG/3 ML Amp INH SCH (02:55)
[2025-05-31 03:58] LABS: BASOPHILS ABSOLUTE AUTO 0.04 K/mm3 (0.00-0.23); BASOPHILS PERCENT AUTO 0 % (0-2); EOSINOPHILS ABSOLUTE AUTO 0.02 K/mm3 (0.00-0.68); EOSINOPHILS PERCENT AUTO 0 % (0-6); Hematocrit 41.6 % (37.0-53.0); Hemoglobin 13.2 g/dL (13.5-17.5); IMMATURE GRAN ABSOLUTE AUTO 0.10 K/mm3 (0.00-0.10); IMMATURE GRAN PERCENT AUTO 1 % (0-1); LYMPHOCYTES ABSOLUTE AUTO 1.42 K/mm3 (0.84-5.20); LYMPHOCYTES PERCENT AUTO 10 % (21-46); MONOCYTES ABSOLUTE AUTO 1.15 K/mm3 (0.16-1.47); MONOCYTES PERCENT AUTO 8 % (4-13); Mean Corpuscular HGB Conc 31.7 g/dL (31.5-36.5); Mean Corpuscular Volume 92 fL (80-100); NEUTROPHILS ABSOLUTE AUTO 12.27 K/mm3 (1.96-9.15); NEUTROPHILS PERCENT AUTO 82 % (41-73); NRBC ABSOLUTE 0.00 K/mm3 (0.00-0.02); NRBC Auto 0.0 /100 WBC (0.0-0.2); Platelet Count 228 K/mm3 (150-400); RDW Coefficient Variation 14.4 % (11.7-14.2); RDW Standard Deviation 48.4 fL (35.1-46.3)
[2025-05-31 04:13] LABS: Magnesium, Blood 2.2 mg/dL (1.6-2.4)
[2025-05-31 04:29] LABS: Alanine Aminotransfer (ALT/SGP 125.0 U/L (12-78); Albumin, Blood 3.2 g/dL (3.4-5.0); Albumin/Globulin Ratio 0.9 (0.8-1.8); Anion Gap 11.0 mmol/L (3-11); Aspartate Aminotrans (AST/SGOT 58.0 U/L (12-37); Bilirubin, Total 0.9 mg/dL (0.1-1.0); Blood Urea Nitrogen 63.0 mg/dL (8-24); CO2, Blood 28.0 mmol/L (21-32); Calcium, Blood 8.4 mg/dL (8.5-10.1); Chloride, Blood 112.0 mmol/L (98-108); Creatinine, Blood 3.27 mg/dL (0.60-1.20); Globulin, Blood 3.7 g/dL (2.2-4.0); Glucose, Blood 172.0 mg/dL (70-99); Potassium, Blood 4.0 mmol/L (3.5-5.5); Sodium, Blood 147.0 mmol/L (136-145); Total Protein, Blood 6.9 g/dL (6.4-8.2)
[2025-05-31 04:34] LABS: Phosphorus, Blood 6.1 mg/dL (2.5-4.9)
[2025-05-31 05:08] LABS: Influenza A, PCR NEGATIVE (NEGATIVE); Influenza B, PCR NEGATIVE (NEGATIVE); Resp Syncytial Virus, PCR NEGATIVE (NEGATIVE); SARS-Cov-2 (COVID-19) PCR, MMC NEGATIVE (NEGATIVE)
[2025-05-31] MEDS ORDERED: Insulin Regular 100 UNIT/ML 10ML Vial SC SCH (06:00)
--- NOTE | 2025-05-31 06:38 | NUR ---
SHIFT SUMMARY PT HAS TOLERATED SHIFT SINCE BEING ADMITTED TO ICU OVERNIGHT. PT ARRIVES DROWSY AND FALLS ASLEEP DURING QUESTIONING. PT IS NON-VERBAL AND IS ONLY ABLE TO ANSWER YES/NO QUESTIONS WITH NOD OR SHAKE OF HEAD. PT APPEARS TO BE RESTING COMFORTABLY IN ROOM AT THIS TIME. WILL CONTINUE TO MONITOR UNTIL REPORT PASSED TO DAY SHIFT TEAM.
[2025-05-31] MEDS ORDERED: Piperacillin/Tazobactam Sod 3.375 GM in NS 100 ML IV SCH (08:00)
[2025-05-31] MEDS ORDERED: Heparin Sodium,Porcine 5,000 UNIT/0.5 ML SDV SC SCH (09:00)
[2025-05-31] MEDS ORDERED: NS 1,000 ML IV SCH (13:40)
[2025-05-31] MEDS ORDERED: MIRALAX17 GM PO (15:31)
[2025-05-31] MEDS ORDERED: Fleet Enema132 ML PR (15:32)
[2025-05-31] MEDS ORDERED: ONDA4ODT MM (15:33)
[2025-05-31] MEDS ORDERED: TRANSDERM-SCOP1 EA10 TD (15:37)
[2025-05-31] MEDS ORDERED: SENN187 PO (15:38)
[2025-05-31 18:56] LABS: Anion Gap 6.0 mmol/L (3-11); Blood Urea Nitrogen 48.0 mg/dL (8-24); CO2, Blood 28.0 mmol/L (21-32); Calcium, Blood 8.3 mg/dL (8.5-10.1); Chloride, Blood 118.0 mmol/L (98-108); Creatinine, Blood 1.5 mg/dL (0.60-1.20); Glucose, Blood 147.0 mg/dL (70-99); Potassium, Blood 3.4 mmol/L (3.5-5.5); Sodium, Blood 149.0 mmol/L (136-145)
--- NOTE | 2025-05-31 18:59 | NUR ---
PALLIATIVE CARE NOTE: ATTEMPTED TO MEET WITH PT. HE WAS SLEEPING. BUTCH FROM [facility] WAS THERE TO CHECK ON PATIENT. HER NUMBER IS [id number]. SHE STATES SHE HAS DEVELOPED A THERAPEUTIC RELATIONSHIP WITH HIM AND BELIEVES SHE CAN ASSIST IN ANY DIFFICULT DECISIONS THAT NEED TO BE MADE. PT IS REPORTED TO HAVE PSYCHIATRIC ILLNESS AND HAS TRUST ISSUES. SHE IS WILLING TO COME IN AND ASSIST WITH DECISION MAKING IF NEED BE. SHE REPORTED PT IS NOT WILLING TO CHANGE CODE STATUS IN THE PAST OR COMPLETE AN ADVANCE DIRECTIVE. HE HAS NO FAMILY. PT IS CURRENTLY REPORTED TO BE CONFUSED. WILL ATTEMPT MEETING WHEN PT ABLE TO PARTICIPATE.
[2025-06-01] VITALS (20 sets, daily range): BP systolic 112–181; BP diastolic 71–107
[2025-06-01] MEDS ORDERED: D5W-1/2NS 1,000 ML IV SCH (00:05)
[2025-06-01 03:44] LABS: BASOPHILS ABSOLUTE AUTO 0.03 K/mm3 (0.00-0.23); BASOPHILS PERCENT AUTO 1 % (0-2); EOSINOPHILS ABSOLUTE AUTO 0.10 K/mm3 (0.00-0.68); EOSINOPHILS PERCENT AUTO 2 % (0-6); Hematocrit 38.2 % (37.0-53.0); Hemoglobin 11.8 g/dL (13.5-17.5); IMMATURE GRAN ABSOLUTE AUTO 0.05 K/mm3 (0.00-0.10); IMMATURE GRAN PERCENT AUTO 1 % (0-1); LYMPHOCYTES ABSOLUTE AUTO 1.18 K/mm3 (0.84-5.20); LYMPHOCYTES PERCENT AUTO 20 % (21-46); MONOCYTES ABSOLUTE AUTO 0.48 K/mm3 (0.16-1.47); MONOCYTES PERCENT AUTO 8 % (4-13); Mean Corpuscular HGB Conc 30.9 g/dL (31.5-36.5); Mean Corpuscular Volume 93 fL (80-100); NEUTROPHILS ABSOLUTE AUTO 3.96 K/mm3 (1.96-9.15); NEUTROPHILS PERCENT AUTO 68 % (41-73); NRBC ABSOLUTE 0.00 K/mm3 (0.00-0.02); NRBC Auto 0.0 /100 WBC (0.0-0.2); Platelet Count 174 K/mm3 (150-400); RDW Coefficient Variation 14.4 % (11.7-14.2); RDW Standard Deviation 49.1 fL (35.1-46.3)
[2025-06-01 04:12] LABS: Magnesium, Blood 2.3 mg/dL (1.6-2.4)
[2025-06-01 04:17] LABS: Anion Gap 6.0 mmol/L (3-11); Blood Urea Nitrogen 42.0 mg/dL (8-24); CO2, Blood 29.0 mmol/L (21-32); Calcium, Blood 7.9 mg/dL (8.5-10.1); Chloride, Blood 120.0 mmol/L (98-108); Creatinine, Blood 1.18 mg/dL (0.60-1.20); Glucose, Blood 162.0 mg/dL (70-99); Potassium, Blood 3.8 mmol/L (3.5-5.5); Sodium, Blood 151.0 mmol/L (136-145)
[2025-06-01 04:20] LABS: Phosphorus, Blood 2.9 mg/dL (2.5-4.9)
--- NOTE | 2025-06-01 06:12 | NUR ---
SHIFT SUMMARY: PT REMAINS ALERT TO SELF, MAKES APPROPRIATE EYE CONTACT. PT IS NONVERBAL (BASELINE), RESPONDS TO VERBAL STIMULI, CAN NOD/SHAKE HEAD TO YES/NO QUESTIONS, AND FOLLOWS COMMANDS. RIGHT SIDED WEAKNESS NOTED UPON AMBULATION OF EXTREMITIES. AFEBRILE. SBP WNL. HR 70S-80S, SINUS. PT ON RA. SATS>93%. RESPIRATIONS EVEN AND UNLABORED. PT DENIED SOB OR CHEST PAIN THIS SHIFT. ABD MILDLY DISTENDED, SOFT TO PALPATION. BT ACTIVE X4, HYPOACTIVE. MALE PUREWICK IN PLACE, CONNECTED TO LOW CONTINUOUS SUCTION. PT HAS 2 PERIPHERAL IVS IN RAC AND RWRIST. INFUSING IS D5W @ 100ML/HR. THIS RN TO REPORT TO ONCOMING RN.
--- NOTE | 2025-06-01 07:00 | NUR ---
ASSUMPTION OF CARE. PATIENT IS RESTING IN BED BUT WAKES EASILY WITH CONVERSATION. PATIENT STATES YES/NO AND SIMPLE ONE WORD ANSWERS TO QUESTIONS. PATIENT ABLE TO MAEW WELL AND STRONG. PT HAS TWO PIV'S HAND IV SALINE LOCKED AND IV TO RIGHT AC WITH D5 AT 100/HR GOING. NEXT LAB TO CHECK SODIUM IS AT NOON TODAY. DID ORAL CARE THERE WAS LOTS OF DEBRIE ON TONGUE AND ROOF OF MOUTH. REPOSITIONED PT AND SITTING HIGH FOWLERS. LUNGS ARE CLEAR AND ABD IS SOFT WITH GOOD BOWEL TONES. SOME SCATTERED BRUISING TO ARMS AND LEFT FOOT. PUREWICK IN PLACE WITH JEFFERY URINE OUT.
--- NOTE | 2025-06-01 16:57 | NUR ---
TRANSFER TO MEDICAL FLOOR PATIENT IS TRANSFERING TO MEDICAL FLOOR ROOM 304. REPORT HAS BEEN GIVEN. NO ACUTE CHANGES TODAY. HIS SODIUM LEVEL HAS COME DOWN CLOSE TO NORMAL (SEE LABS). PATIENT HAS BEEN ABLE TO WORK WITH PT/OT/SP AND NURSING STAFF TODAY TO BE IN CHAIR AND STAND SIT WITH WALKER AND GAIT BELT. HE SHOWS SOME ATAXIA TO RIGHT LEG ONLY WHEN STANDING, AND TO RIGHT HAND WHEN FINGER POINT FINGER TO NOSE BACK AND FORTH QUICKLY. HE IS OTHERWISE STRONG BILATERALLY BUT DOES LISP TO RIGHT WHEN SITTING UPRIGHT WITHOUT SUPPORT. VICKY HAS GIVEN HIM A DIET DYSPHASIA LEVEL 4. HE REMAINS ON D5W AT 100ML/HR AT THIS TIME. NO ORDER TO DC OF YET. LABS IN THE AM. WILL MOVE PT TO 304 VIA BED.
[2025-06-02] MEDS ORDERED: Piperacillin/Tazobactam Sod 3.375 GM in NS 100 ML IV SCH (01:00)
[2025-06-02 03:43] VITALS: BP 125/72
--- NOTE | 2025-06-02 04:43 | NUR ---
SHIFT SUMMARY A/O TO SELF ONLY. VERY LITTLE VERBAL COMMUNICATION, PT ANSWERS WITH HEAD NODS. APPEARS TO HAVE SLEPT WELL THROUGHOUT THE SHIFT. MEDICATIONS GIVEN PER EMAR. VITAL SIGNS REMAINED STABLE. TELE IN PLACE WITH REPORT OF NSR AT 68. NO REPORTS OF PAIN. REPOSITIONED Q2H AND ATTENDS CHANGED WHEN SOILED. REMOVED MALE PUREWICK PT CONTINUES TO PULL IT OFF. NO ACUTE CHANGES THROUGHOUT THE SHIFT. CALL LIGHT IN REACH, BED IN LOWEST POSITION. WILL REPORT TO ONCOMING RN.
[2025-06-02 06:15] LABS: Hematocrit 36.0 % (37.0-53.0); Hemoglobin 11.5 g/dL (13.5-17.5); Mean Corpuscular HGB Conc 31.9 g/dL (31.5-36.5); Mean Corpuscular Volume 92 fL (80-100); NRBC ABSOLUTE 0.00 K/mm3 (0.00-0.02); NRBC Auto 0.0 /100 WBC (0.0-0.2); Platelet Count 166 K/mm3 (150-400); RDW Coefficient Variation 13.9 % (11.7-14.2); RDW Standard Deviation 46.8 fL (35.1-46.3)
[2025-06-02 07:00] LABS: Alanine Aminotransfer (ALT/SGP 84.0 U/L (12-78); Albumin, Blood 2.8 g/dL (3.4-5.0); Albumin/Globulin Ratio 0.9 (0.8-1.8); Anion Gap 5.0 mmol/L (3-11); Aspartate Aminotrans (AST/SGOT 40.0 U/L (12-37); Bilirubin, Total 0.6 mg/dL (0.1-1.0); Blood Urea Nitrogen 21.0 mg/dL (8-24); CO2, Blood 28.0 mmol/L (21-32); Calcium, Blood 7.9 mg/dL (8.5-10.1); Chloride, Blood 118.0 mmol/L (98-108); Creatinine, Blood 0.88 mg/dL (0.60-1.20); Globulin, Blood 3.2 g/dL (2.2-4.0); Glucose, Blood 137.0 mg/dL (70-99); Potassium, Blood 3.2 mmol/L (3.5-5.5); Sodium, Blood 148.0 mmol/L (136-145); Total Protein, Blood 6.0 g/dL (6.4-8.2)
[2025-06-02] MEDS ORDERED: Insulin Regular 100 UNIT/ML 10ML Vial SC SCH (07:30)
[2025-06-02 07:40] VITALS: BP 158/94
[2025-06-02] MEDS ORDERED: Ondansetron 4 MG SoluTab MM PRN (08:00)
[2025-06-02] MEDS ORDERED: Albuterol HFA200 ACT/6.7 GM INH INH PRN (08:05)
[2025-06-02] MEDS ORDERED: Eucerin Unscented Lotion 240 ml TOP PRN (08:10)
[2025-06-02] MEDS ORDERED: Polyethylene Glycol 3350 17 gm PO SCH (09:00)
[2025-06-02 11:00] LABS: Anion Gap 7.0 mmol/L (3-11); Blood Urea Nitrogen 18.0 mg/dL (8-24); CO2, Blood 26.0 mmol/L (21-32); Calcium, Blood 8.3 mg/dL (8.5-10.1); Chloride, Blood 116.0 mmol/L (98-108); Creatinine, Blood 0.85 mg/dL (0.60-1.20); Glucose, Blood 159.0 mg/dL (70-99); Potassium, Blood 3.5 mmol/L (3.5-5.5); Sodium, Blood 145.0 mmol/L (136-145)
[2025-06-02 11:26] VITALS: BP 136/82
[2025-06-02] MEDS ORDERED: Pantoprazole Sodium 40 MG Injection IV SCH (13:00)
[2025-06-02 15:34] VITALS: BP 126/70
[2025-06-02] MEDS ORDERED: NS 250 ML IV PRN (19:15)
--- NOTE | 2025-06-02 19:37 | NUR ---
SUMMARY PT SEEN BY SALINAS PALACIO AND WAS STARTED ON PUREED LEVEL 4 DIET WITH MOD THICKENED LIQUIDS. PT VERY POOR APPETITE, REFUSING MEALS. WHEN ASKED WHY HE DOESN'T WANT TO EAT PT STATES "I DONT KNOW" WHEN ATTEMPTING TO GIVE PO MEDS THIS AM PT SPIT OUT AND REFUSED TO TAKE MORE. WHEN ASKED WHY HE DID NOT WANT TO TAKE HIS PO MEDS THIS EVENING PT STATES "I DONT CARE" PT SEEN BY PHYSICAL THERAPY AND OCCUPATIONAL THERAPY. PALLIATIVE CARE CONSULTED TODAY FOR CARE PLANNING/READMISSION. PT STOOD AT OOB WITH THERAPY. PT HAS COUGH THAT PT CAN OCCASIONALLY CLEAR ON OWN BUT WILL SET UP SUCTION TO ASSIST IF NEEDED. INCONTINENT OF BOWEL AND BLADDER. ATTENDS CHANGED PRN. REPOSITIONING Q2. UNABLE TO MAKE NEEDS KNOWN. 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 NO TEETH/NO DENTURES AT BEDSIDE.
[2025-06-02 20:00] VITALS: BP 136/81
--- NOTE | 2025-06-02 21:46 | NUR ---
PT REFUSED 2100 ORAL MEDS PT AGREED TO TAKE MEDS. CRUSHED 2100 MEDS IN APPLESAUCE. PT TOOK TWO SMALL BITES AND THEN REFUSED ANY FURTHER MEDS. OFFERED TO GIVE IN PUDDING. PT STILL DECLINES ORAL MEDS. PT WITH NOTABLE DIFFICULTY TAKING FOOD INTO MOUTH AND EXAGERATED SWALLOW.
[2025-06-03 00:40] VITALS: BP 130/78
--- NOTE | 2025-06-03 03:16 | NUR ---
TELE NOTIFICATION PT HAS 13 BEAT RUN OF SVT, NOTIFIED AT 0315. PT SLEEPING.
[2025-06-03 05:05] VITALS: BP 127/79
[2025-06-03 05:51] LABS: Alanine Aminotransfer (ALT/SGP 83.0 U/L (12-78); Albumin, Blood 2.7 g/dL (3.4-5.0); Albumin/Globulin Ratio 0.9 (0.8-1.8); Anion Gap 4.0 mmol/L (3-11); Aspartate Aminotrans (AST/SGOT 40.0 U/L (12-37); Bilirubin, Total 0.6 mg/dL (0.1-1.0); Blood Urea Nitrogen 11.0 mg/dL (8-24); CO2, Blood 29.0 mmol/L (21-32); Calcium, Blood 7.9 mg/dL (8.5-10.1); Chloride, Blood 113.0 mmol/L (98-108); Creatinine, Blood 0.89 mg/dL (0.60-1.20); Globulin, Blood 3.1 g/dL (2.2-4.0); Glucose, Blood 124.0 mg/dL (70-99); Potassium, Blood 3.0 mmol/L (3.5-5.5); Sodium, Blood 143.0 mmol/L (136-145); Total Protein, Blood 5.8 g/dL (6.4-8.2)
[2025-06-03] MEDS ORDERED: Potassium Chloride 60 MEQ IV SCH (06:35)
--- NOTE | 2025-06-03 06:36 | NUR ---
CREAM TESTER SUMMARY WITH HOSPITALIST CONTACT SEE PREVIOUS NURSE NOTES. PT REFUSING ORAL MEDICATIONS. NO ACUTE EVENTS. PT LIMITED VERBAL COMMUNICATION. WORD SEARCHING. PRESSURED SPEECH. PT ATTEMPTED TO TAKE MEDS ORALLY BUT COULD NOT TOLERATE CRUSED AND REFUSED AFTER TWO VERY SMALL BITES. PT HAS VERY POOR INTAKE. PT REMAINS ON CONT FLUIDS. PT PULLED RIGHT FOREARM IV AND WAS UNAWARE HE PULLED IT. REGULAR ROUNDING AND Q2 TURNS COMPLETE. THIS MORNING LABS, PT HAD POTASSIUM OF 3.0. CALL TO HOSPITALIST. SPOKE TO DR RAMOS. NEW ORDER FOR 60MEQ IV. CARE WILL CONTINUE UNTIL REPORT GIVEN TO ONCOMING NURSE.
[2025-06-03] MEDS ORDERED: Potassium Chl 20MEQ/Water100ML 100 ML IV SCH (07:30)
[2025-06-03 07:53] VITALS: BP 142/78
[2025-06-03 11:24] VITALS: BP 129/85
[2025-06-03 15:30] VITALS: BP 140/90
[2025-06-03 19:15] VITALS: BP 139/80
--- NOTE | 2025-06-03 19:48 | NUR ---
SHIFT SUMMARY: PT A&O TO SELF. PLEASANT AND COOPERATIVE WITH CARE. NO ACUTE CHANGES THIS SHIFT. PT TO HAVE PALLIATIVE CONSULT TO DISCUSS SNF VS PALLIATIVE OPTIONS. ST IN ROOM THIS AM TO REASSESS PT. PT REMAINS ASPIRATING ON MEDICATIONS AND FOOD/LIQUIDS. DR. WRIGHT IN ROOM TO DISCUSS OPTION FOR FEEDING TUBE IF THAT NEED OCCURS. PT HAD LARGE BM THIS SHIFT. INFUSING DEXTROSE @60/HR. CALL LIGHT IN REACH. BED IN LOWEST POSITION.
[2025-06-04] VITALS (7 sets, daily range): BP systolic 148–163; BP diastolic 87–96
[2025-06-04 04:52] LABS: BASOPHILS ABSOLUTE AUTO 0.03 K/mm3 (0.00-0.23); BASOPHILS PERCENT AUTO 1 % (0-2); EOSINOPHILS ABSOLUTE AUTO 0.18 K/mm3 (0.00-0.68); EOSINOPHILS PERCENT AUTO 4 % (0-6); Hematocrit 34.8 % (37.0-53.0); Hemoglobin 11.5 g/dL (13.5-17.5); IMMATURE GRAN ABSOLUTE AUTO 0.07 K/mm3 (0.00-0.10); IMMATURE GRAN PERCENT AUTO 2 % (0-1); LYMPHOCYTES ABSOLUTE AUTO 1.30 K/mm3 (0.84-5.20); LYMPHOCYTES PERCENT AUTO 28 % (21-46); MONOCYTES ABSOLUTE AUTO 0.48 K/mm3 (0.16-1.47); MONOCYTES PERCENT AUTO 10 % (4-13); Mean Corpuscular HGB Conc 33.0 g/dL (31.5-36.5); Mean Corpuscular Volume 88 fL (80-100); NEUTROPHILS ABSOLUTE AUTO 2.67 K/mm3 (1.96-9.15); NEUTROPHILS PERCENT AUTO 57 % (41-73); NRBC ABSOLUTE 0.00 K/mm3 (0.00-0.02); NRBC Auto 0.0 /100 WBC (0.0-0.2); Platelet Count 142 K/mm3 (150-400); RDW Coefficient Variation 13.4 % (11.7-14.2); RDW Standard Deviation 43.4 fL (35.1-46.3)
[2025-06-04 05:08] LABS: Anion Gap 5.0 mmol/L (3-11); Blood Urea Nitrogen 7.0 mg/dL (8-24); CO2, Blood 27.0 mmol/L (21-32); Calcium, Blood 8.0 mg/dL (8.5-10.1); Chloride, Blood 110.0 mmol/L (98-108); Creatinine, Blood 0.88 mg/dL (0.60-1.20); Glucose, Blood 124.0 mg/dL (70-99); Magnesium, Blood 1.6 mg/dL (1.6-2.4); Potassium, Blood 3.3 mmol/L (3.5-5.5); Sodium, Blood 139.0 mmol/L (136-145)
--- NOTE | 2025-06-04 07:13 | NUR ---
RAPID TRANSIT OPERATOR SUMMARY PT A/OX TO SELF. WAKEFUL ALL NIGHT LONG. PT PRESENTING WITH INCREASED ALERTNESS AND INCREASED VOCALIZATIONS. PT SPEAKING IN BROKEN SENTENCES VS 1-2 WORD RESPONSES. PT CALLING FOR STAFF. ALSO INCREASED IMPULSIVITY--PT PULLED TELE OFF MULTIPLE TIMES T/O THE NIGHT. PT PULLED RIGHT AC IV. PT HAS MULTIPLE LARGE INCONTINENT BOWEL MOVEMENTS AND LARGE URINE OUTPUT. PT WILL PULL ON BRIEF WHEN SOILED BUT UNABLE TO CALL FOR HELP CONSISTENTLY. PT REQUIRED MULTIPLE FULL BED CHANGES DUE TO HEAVING WETTING AND LARGE BM. PT REMAINS PLEASANT WITH CARE. CONFUSED BUT REDIRECTABLE. ON TELE WITH NO EVENTS. BED ALARM IN PLACE.
[2025-06-04] MEDS ORDERED: HydrALAZINE HCl 20 MG / ML 1ML Vial IV PRN (09:45)
[2025-06-04] MEDS ORDERED: Potassium Chl 20MEQ/Water100ML 100 ML IV STA (09:54)
--- NOTE | 2025-06-04 10:00 | NUR ---
ATTEMPTED TO REACH SISTER GUEVARA BY PHONE ([phone]). NO ANSWER, LEFT VOICEMAIL. BEDSIDE RN REPORTS PT CHOKING WITH MEDICATIONS CRUSHED. HE IS LETHARGIC. WILL CONTINUE TO ATTEMPT CONTACT WITH SISTER.
[2025-06-04] MEDS ORDERED: Ipratropium/Albuterol SulF 2.5-0.5MG/3 ML Amp INH PRN (11:15)
[2025-06-04] MEDS ORDERED: Ondansetron HCl 2 MG / ML 2ML Vial IV PRN (15:35)
--- NOTE | 2025-06-04 18:22 | NUR ---
SHIFT SUMMARY: PT A&O X2. PLEASANT AND COOPERATIVE WITH CARE. PT MADE NPO THIS SHIFT D/T ASPIRATION APPROX 30 MIN AFTER EATING 10% OF BREAKFAST. PT C/O NAUSEA THIS AFTERNOON. IV ZOFRAN ORDERED AND GIVEN PER EMAR. PT HAD 3 LAR[address] BM'S THIS SHIFT. DR. WRIGHT SPOKE WITH PT AGAIN REGARDING FEEDING TUBE PT IS UNABLE TO SWALLOW FOOD OR MEDICATIONS PROPERLY. OT ORDERED FOR COG EVAL; NOT YET COMPLETED OF THIS TIME. TELE IN PLACE RUNNING SINUS RHYTHM WITH A PULSE IN THE 80'S. IV FLUIDS INCREASED TO 75/HR. IV ABX INFUSING W/O COMPLICATIONS. POTASSIUM REPLACED D/T LEVEL OF 3.3. CALL LIGHT IN REACH. BED IN LOWEST POSITION.
[2025-06-05 03:47] VITALS: BP 157/91
--- NOTE | 2025-06-05 04:54 | NUR ---
SHIFT SUMMARY PT ALERT AND ORIENTED TIMES 2 . PT ADMITTED FOR SEPTIC SHOCK.. PT IS ON ROOM AIR. PT HAS DEXTROSE 5% FLUID @75. PT IS COOPERATIVE WITH CARE. PT HAS NO ORAL MEDICATION DUE TO SWALLOW ISSUES. CALL LIGHT WITHIN REACH, RAILS TIMES 2, BED IN LOW POSITION.
[2025-06-05 04:58] LABS: BASOPHILS ABSOLUTE AUTO 0.02 K/mm3 (0.00-0.23); BASOPHILS PERCENT AUTO 0 % (0-2); EOSINOPHILS ABSOLUTE AUTO 0.24 K/mm3 (0.00-0.68); EOSINOPHILS PERCENT AUTO 4 % (0-6); Hematocrit 36.3 % (37.0-53.0); Hemoglobin 11.9 g/dL (13.5-17.5); IMMATURE GRAN ABSOLUTE AUTO 0.08 K/mm3 (0.00-0.10); IMMATURE GRAN PERCENT AUTO 1 % (0-1); LYMPHOCYTES ABSOLUTE AUTO 1.11 K/mm3 (0.84-5.20); LYMPHOCYTES PERCENT AUTO 18 % (21-46); MONOCYTES ABSOLUTE AUTO 0.64 K/mm3 (0.16-1.47); MONOCYTES PERCENT AUTO 10 % (4-13); Mean Corpuscular HGB Conc 32.8 g/dL (31.5-36.5); Mean Corpuscular Volume 89 fL (80-100); NEUTROPHILS ABSOLUTE AUTO 4.06 K/mm3 (1.96-9.15); NEUTROPHILS PERCENT AUTO 66 % (41-73); NRBC ABSOLUTE 0.00 K/mm3 (0.00-0.02); NRBC Auto 0.0 /100 WBC (0.0-0.2); Platelet Count 141 K/mm3 (150-400); RDW Coefficient Variation 13.4 % (11.7-14.2); RDW Standard Deviation 43.6 fL (35.1-46.3)
[2025-06-05 05:31] LABS: Anion Gap 7.0 mmol/L (3-11); Blood Urea Nitrogen 5.0 mg/dL (8-24); CO2, Blood 28.0 mmol/L (21-32); Calcium, Blood 8.2 mg/dL (8.5-10.1); Chloride, Blood 108.0 mmol/L (98-108); Creatinine, Blood 0.92 mg/dL (0.60-1.20); Glucose, Blood 115.0 mg/dL (70-99); Potassium, Blood 3.4 mmol/L (3.5-5.5); Sodium, Blood 140.0 mmol/L (136-145)
[2025-06-05 07:46] VITALS: BP 141/83
[2025-06-05 10:23] VITALS: BP 138/84
--- NOTE | 2025-06-05 11:40 | NUR ---
PT'S MENTATION HAS DECLINED SINCE THIS PC RN VISIT YESTERDAY 06/04/25. CONTINUES TO BE LETHARGIC. TACTILE STIMULI TO GET A MUMBLED RESPONSE. ATTEMPTED TO REACH PT'S SISTER THAT IS LISTED IN DEMOGRAPHICS ([phone]). NO ANSWER. LEFT MESSAGE. UPDATED BEDSIDE RN.
[2025-06-05 15:27] VITALS: BP 133/79
--- NOTE | 2025-06-05 19:50 | NUR ---
SHIFT SUMMARY: PT ORIENTED TO SELF AND TOWN. PT HAS BEEN VERY ANXIOUS AND ATTEMPTING OOB MANY TIMES THIS SHIFT. ATTEMPTED SCHEDULED ZYPREXA AND SEROQUEL. PT REMAINED ANXIOUS AND IS NOW IN MAMTA RESTRAINT. PT INCONTINENT OF BOWEL AND BLADDER. GI PANEL ORDERED BUT NOT YET COLLECTED. PT PULLED IV IN NITA THIS SHIFT. NEW IV PLACED BY JASPREET HOU W/O COMPLICATIONS. DEXTROSE 5% INFUSING @ 75/HR. PLANS FOR PALLIATIVE, CASE MANAGEMENT, AND DOCTOR TO DISCUSS HOSPICE VS FEEDING TUBE PLACEMENT. PT NPO AT THIS TIME FOR ASPIRATION RISK. CALL LIGHT IN REACH. BED IN LOWEST POSITION WITH ALARM ON.
[2025-06-05 21:00] VITALS: BP 165/89
[2025-06-06 00:01] VITALS: BP 126/74
[2025-06-06 05:53] VITALS: BP 130/65
--- NOTE | 2025-06-06 07:10 | NUR ---
SHIFT SUMMARY: PT AOX1, TO SELF ONLY. ABLE TO ANSWER QUESTIONS WITH FEW WORDS, NOT ABLE TO MAKE NEEDS KNOWN, DOES NOT CALL APPROPRIATELY. IMPULSIVE CONSTANTLY, PULLING AT LINES AND ATTEMPTING TO GET OUT OF BED. MAMTA IN PLACE, IM ZYPREXA GIVEN. PT TOLERATING WELL, SMALL BRUISING ON L HIP FROM THE MAMTA, LOOSENED SLIGHTLY. PT INCONT AND HAS HAD SEVERAL BED CHANGES. ATTENDS IN PLACE. PT WITHDRAWN AND VERY SUNKEN. SOUNDS LIKE HE HAS SOME FLUID IN HIS THROAT, GURGLING ON BREATH, NOT ABLE TO COUGH IT UP AND ISNT FOLLOWING COMMANDS. PT GETS SOME GOOD COUGHS OCCASIONALLY BUT ISNT SUCTIONING LIKE HE WAS PER DAY SHIFT. LUGS ARE STILL CLEAR. VITAL SIGNS ARE STABLE. PT IN BED RESTING, BED IN LOWEST POSITION, CALL LIGHT IN REACH. CONTINUING CARE.
[2025-06-06 07:25] VITALS: BP 132/71
--- NOTE | 2025-06-06 07:55 | NUR ---
BEDSIDE NURSE REPORTS PT'S MEDICAL CONDITION IS WORSE THAN WHEN HE CARED FOR MR. HOYT LAST WEEK. PT HAS PULLED HIS ONLY WORKING IV. MAMTA VEST NEEDED FOR PT SAFETY. ATTEMPTED TO REACH PT'S SISTER GUEVARA VIA PHONE FOR THE 3RD DAY IN A ROW. LEFT VOICEMAIL WITH REQUEST FOR AN URGENT RESPONSE.
--- NOTE | 2025-06-06 08:36 | NUR ---
Ethics consultation guidance requested. Medical history, prognostic trajectory and family constellation reviewed. 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 He has a sister listed as NOK, but despite a good kisha effort she has been unreachable. It would be ethically permissible to forgo curative treatments / heroic measures with the following conditions satisfied: (1) two providers attest to the fact that the principal is in a state of terminality, (2) ongoing restorative and life prolonging interventions would not offer a reaosnable hope of benefit or would be clinically disproportionate, and (3) if the principal has an adult friend, the care team has engaged and informed the proxy by default that the most medically appropriate / reasonable POC moving forward is de-escelation and comfort measures, and the proxy verbalizes understanding and agreement. Thank you for this consult.
--- NOTE | 2025-06-06 08:54 | NUR ---
PLACED AN ETHICS ORDER. REVIEWED CONCERNS RE: LACK OF ABILITY TO REACH NOK. SPOKE WITH DR. WRIGHT, SHE WILL HAVE A SECOND PROVIDER SEE PT FOR TWO PHYSICIAN ATTESTATION. DR. WRIGHT TO CONTACT THIS PC RN AFTER SECOND PROVIDER EVALUATION AND RECOMMENDATION. THIS PC RN WILL THEN REACH OUT TO FRIEND/ACQUAINTANCE, BUTCH.
[2025-06-06] MEDS ORDERED: Haloperidol Lactate Inj. 5 MG/ML Injection IV PRN (09:35)
[2025-06-06] MEDS ORDERED: Atropine Sulfate 1% Opth Soln 2ML BTL SL PRN (09:35)
[2025-06-06] MEDS ORDERED: Morphine Sulfate 20 MG/1ML 1 ML Oral Syringe SL PRN (09:35)
--- NOTE | 2025-06-06 11:00 | NUR ---
STATUS CHANGED TO COMFORT CARE PER ORDERS RCV'D FROM DR. WRIGHT. REPORTS SHE AND HAVE AGREED END STAGE DISEASE PROCESS WITH TWO PHYSICIAN ATTESTATION. COMFORT CARE ORDERS PLACED PER PROVIDER REQUEST. BEDSIDE NURSE AND CM UPDATED.
--- NOTE | 2025-06-06 13:06 | NUR ---
ALL PIVS REMOVED. PT DISHCARGED UNDER MD ORDERS. PT HAS D/C PACKET IN HAND
--- NOTE | 2025-06-06 18:06 | NUR ---
PT PLACED ON LINOLEUM LAYER HELPER. HERNÁNDEZ PLACED AND PRNS GIVEN FOR COMFORT.
--- NOTE | 2025-06-07 05:44 | NUR ---
SHIFT SUMMARY: PT AOX1-0 SOMNULENT AND SLEEPING MOST OF THE NIGHT. SOME AIR HUNGER/ GURGLING, MEDICATED PER EMR. TOLERATING MEDICATIONS WELL. HAS NOT ATTEMPTED TO GET OUT OF BED. ARROUSABLE AT TIMES AND FOLLWOING COMMANDS AT TIMES. VERY SOFT VOICE. MEDICATED WITH SOME ROXANOL AND ATIVAN FOR AIR HUNGER AND ANXIOUSNESS. TOLERATING WELL. PT IN BED RESTING, BED IN LOWEST POSITION, CALL LIGHT IN REACH.
--- NOTE | 2025-06-07 18:00 | NUR ---
PT REMAINED LABORER GENERAL.
--- NOTE | 2025-06-07 18:09 | NUR ---
PALLIATIVE CARE COMFORT CARE VISIT: SUPPORTIVE VISIT MADE. BUTCH FROM HOUSING AUTHORITY PRESENT AND ASSISTING WITH GETTING PT ON LTC, HOUSING PLAN. PT APPEARS COMFORTABLE. HE DENIES NEEDS AT THIS TIME. NO APPARENT DISTRESS. RR E/U. NO NEEDS PER PRIMARY RN. CONTINUE CURRENT SUPPORTIVE CARE. SYMPTOMS MANAGED.
--- NOTE | 2025-06-08 04:41 | NUR ---
SHIFT SUMMARY: PT AOX1 ALTHOUGH HE DID WAVE AT ME AT SHIFT CHANGE IF HE RECOGNIZED ME. STILL UNABLE TO VERBALIZE EFFECTIVELY BUT CAN MAKE OUT IF HE WANTS A BLANKET OR THE DOOR CLOSED. PT TOLERATING MEDICATIONS WELL. SOME INCREASED GURGLING, ATROPINE DROPS GIVEN BUT INEFFECTIVE. SCOPOLAMINE PATCH PROVIDED AND [employer]I [employer] TO 10MG TOLERATING BETTER. PT PICKED AT HERNÁNDEZ STICKER BUT DID NOT PULL THE HERNÁNDEZ ITSELF. NEW STICKER AND LOCK IN PLACE. PT LOOKS COMFORTABLE AND AIRHUNGER MINIMIZED. PT IN BED RESTING, BED IN LOWEST POSITION, CALL LIGHT IN REACH. CONTINUING CARE.
--- NOTE | 2025-06-08 14:33 | NUR ---
COMFORT CARE SUPPORTIVE VISIT. NO ACUTE S/SX OF DISTRESS NOTED AT THIS TIME. PC TO REMAIN AVAILABLE NEEDED.
--- NOTE | 2025-06-09 04:23 | NUR ---
SHIFT SUMMARY PATIENT ON COMFORT CARE RESTING WITH EYES CLOSED T/O SHIFT. UNABLE TO VERBALIZE AT THIS TIME. GURGLING WITH SCOPAMINE PATCH IN PLACE. SUCTION PROVIDED. HERNÁNDEZ PATIENT AND DRAINING TO GRAVITY. CALL LIGHT IN REACH. BED IN LOWEST POSITION. WILL CONTINUE TO MONITOR UNTIL DAY SHIFT NURSE ASSUMES CARE.
--- NOTE | 2025-06-09 06:10 | NUR ---
PATIENT PASSED 04:54 AND GENERAL MACHINIST AND HOSPITALIST DR ADDISON NOTIFIED. IN ADDITION, SISTER GUEVARA WAS CALLED AND LEFT MESSAGE AND CAREGIVER CALLED BY GENERAL MACHINIST. CAREGIVER WILL BE IN FOR PERSONAL BELONGINGS.
--- NOTE | 2025-06-09 08:02 | NUR ---
HOME PT REMAINS HAVE BEEN REMOVED. CARE ONGOING.
== END 2025-06-09 04:54 | DRG 871 ==
LOC: ER 00:45 → ICUE 02:27 → MEDS 02:27 → ICUE 03:22 → MEDS 06-01 17:23
PROVIDERS: Emergency Medicine; Internal Medicine; Student in an Organized Health Care Education/Training Program; ADMIT Student in an Organized Health Care Education/Training Program
PROC: 3E03329 Introduction of Other Anti-infective into Peripheral Vein, Percutaneous Approach (ICD-10-PCS; principal; 2025-05-31)
PROC: 0T9B70Z Drainage of Bladder with Drainage Device, Via Natural or Artificial Opening (ICD-10-PCS; 2025-06-06)
DX: A41.9 Sepsis, unspecified organism (principal); G93.41 Metabolic encephalopathy; J69.0 Pneumonitis due to inhalation of food and vomit; J18.9 Pneumonia, unspecified organism; E87.20 Acidosis, unspecified; N17.9 Acute kidney failure, unspecified; J44.0 Chronic obstructive pulmonary disease with (acute) lower respiratory infection; E87.0 Hyperosmolality and hypernatremia; I69.351 Hemiplegia and hemiparesis following cerebral infarction affecting right dominant side; Z66 Do not resuscitate; F01.54 Vascular dementia, unspecified severity, with anxiety; F02.84 Dementia in other diseases classified elsewhere, unspecified severity, with anxiety; F01.53 Vascular dementia, unspecified severity, with mood disturbance; F02.83 Dementia in other diseases classified elsewhere, unspecified severity, with mood disturbance; Z51.5 Encounter for palliative care; R65.20 Severe sepsis without septic shock; J43.9 Emphysema, unspecified; I69.391 Dysphagia following cerebral infarction; R13.12 Dysphagia, oropharyngeal phase; I12.9 Hypertensive chronic kidney disease with stage 1 through stage 4 chronic kidney disease, or unspecified chronic kidney disease; E11.22 Type 2 diabetes mellitus with diabetic chronic kidney disease; N18.9 Chronic kidney disease, unspecified; D63.1 Anemia in chronic kidney disease; N40.0 Benign prostatic hyperplasia without lower urinary tract symptoms; F43.10 Post-traumatic stress disorder, unspecified; F42.9 Obsessive-compulsive disorder, unspecified; E86.0 Dehydration; E87.6 Hypokalemia; F31.9 Bipolar disorder, unspecified; G30.9 Alzheimer's disease, unspecified; Z90.49 Acquired absence of other specified parts of digestive tract; Z98.890 Other specified postprocedural states; Z79.82 Long term (current) use of aspirin; Z79.84 Long term (current) use of oral hypoglycemic drugs; Z79.899 Other long term (current) drug therapy; Z88.5 Allergy status to narcotic agent; Z88.8 Allergy status to other drugs, medicaments and biological substances
CPT/HCPCS: 36415; 71045; 76770; 80048; 80053; 82570; 82947; 83605; 83735; 84100; 84145; 84295; 84300; 85025; 85027; 87040; 87637; 92526; 92610; 93005; 93010; 94640; 94664; 94760; 94762; 96365; 97110; 97112; 97163; 97166; 97530; 97535; 99285-25; A9270; J1644; J1815; J2405; J2470; J2543; J3480; J7030; J7042; J7050; J7060; J7070; J7120